=== PATIENT | male | born 1975 | race Caucasian/White ===

== ENCOUNTER 2017-08-05 17:41 | Observation (INO) | payer MEDICAID ==
[~2017-08-05] VITALS: Ht 182.9 cm; Wt 133.3 kg
[~2017-08-05 17:41] MED LIST: DEXAMETHASONE SOD PHOS 4 MG/ML VIAL IV ONE; GLYCOPYRROLATE 0.4 MG/2 ML VIAL IV ONE; HYDR-3535 PO; LIDOCAINE HCL 1% PF 5 ML SYRINGE OTHER ONE; NEOSTIGMINE 3 MG/3 ML SYR IV ONE; NORMOSOL R INJ 1,000 ML IV ONE; ONDANSETRON HCL 4 MG/2 ML VIAL IV PUSH ONE; PROPOFOL 200 MG/20 ML AMP IV ONE; ROCURONIUM INJ 50 MG/5 ML SYRINGE IV PUSH ONE; SUCCINYLCHOLINE CHLORIDE 100 MG/5 ML SYRINGE IV PUSH ONE
[2017-08-05] MEDS ORDERED: IOHEXOL 350 MG/ML 50 ML BTL (for RAD DIAG) IVCONTRAST ONE (17:42)
[2017-08-05 17:45] VITALS: BP 178/114; PULSE 102; RESP 18; TEMP 99.2; O2SAT 94
[2017-08-05] MEDS ORDERED: SODIUM CHLORIDE 0.9% FLUSH 10 ML FLUSH IV FLUSH PRN ×2 (18:45→22:45)
[2017-08-05 18:48] VITALS: O2SAT 96
[2017-08-05 18:49] VITALS: BP 168/98; PULSE 89; RESP 16
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
[2017-08-05 19:17] LABS: AUTOMATED NEUTROPHIL # 7.3 TH/MM3 (1.8-7.7); BASOPHIL % 0.2 % (0.0-2.0); EOSINOPHIL # 0.2 TH/MM3 (0-0.4); EOSINOPHIL % 1.8 % (0.0-4.0); HEMATOCRIT 39.6 % (39.0-51.0); HEMO FLAGS DIFF FINAL; LYMPH % 19.3 % (9.0-44.0); LYMPHOCYTE # 2.1 TH/MM3 (1.0-4.8); MEAN CELL VOLUME 84.5 FL (80.0-100.0); MEAN CORPUSCULAR HEMOGLOBIN 29.6 PG (27.0-34.0); MONO % 10.8 % (0.0-8.0); NEUT % 67.9 % (16.0-70.0); PLATELET COUNT 164 TH/MM3 (150-450); RED BLOOD COUNT 4.69 MIL/MM3 (4.50-5.90); RED CELL DISTRIBUTION WIDTH 13.1 % (11.6-17.2); WHITE BLOOD COUNT 10.8 TH/MM3 (4.0-11.0)
[2017-08-05 19:30] LABS: APTT (PATIENT) 30.1 SEC (24.3-30.1); PROTHROMBIN TIME - PATIENT 10.9 SEC (9.8-11.6)
[2017-08-05 19:34] LABS: ANION GAP 10 MEQ/L (5-15); AST (GOT) 22 U/L (15-37); BLOOD UREA NITROGEN 15 MG/DL (7-18); CHLORIDE 102 MEQ/L (98-107); GLOMERULAR FILTRATION RATE 72 ML/MIN (>89); POTASSIUM 3.7 MEQ/L (3.5-5.1); SODIUM (NA) 138 MEQ/L (136-145)
[2017-08-05 19:36] LABS: ALT (GPT) 28 U/L (12-78)
[2017-08-05 19:37] LABS: ALKALINE PHOSPHATASE 64 U/L (45-117); TOTAL BILIRUBIN ADULT 0.6 MG/DL (0.2-1.0)
[2017-08-05 20:00] VITALS: BP 161/97; PULSE 86; RESP 18; O2SAT 99
--- NOTE | 2017-08-05 21:28 | RADRPT ---
EXAM DATE/TIME: 08/05/2017 20:18 [place] COMPARISON: No previous studies available for comparison. INDICATIONS : Right lower quadrant pain. IV CONTRAST: 95 cc Omnipaque 350 (iohexol) IV ORAL CONTRAST: No oral contrast ingested. RADIATION DOSE: 17.00 CTDIvol (mGy) MEDICAL HISTORY : None SURGICAL HISTORY : None. ENCOUNTER: Initial ACUITY: 1 day PAIN SCALE: 9/10 LOCATION: Right lower quadrant TECHNIQUE: Volumetric scanning of the abdomen and pelvis was performed. Using automated exposure control and ad justment of the mA and/or kV according to patient size, radiation dose was kept as low as reasonably achievable to obtain optimal diagnostic quality images. DICOM format image data is available electro nically for review and comparison. FINDINGS: LOWER LUNGS: There is mild suspected atelectasis at the posterior medial left base. LIVER: There is mild decreased density to the liver without lesion. There is no dilation of the biliary rosmery e. No calcified gallstones. SPLEEN: Normal size without lesion. PANCREAS: Within normal limits. KIDNEYS: Normal in size and shape. There is no mass, stone or hydronephrosis. ADRENAL GLANDS: Within normal limits. VASCULAR: There is no aortic aneurysm. BOWEL/MESENTERY: The appendix is distended. There is inflammatory change surrounding the appendix. There is an 8mm ajay cification within the mid to distal appendix likely related to an appendicolith. No abscess is seen. There is scattered colonic diverticula seen. ABDOMINAL WALL: Within normal limits. RETROPERITONEUM: There is no lymphadenopathy. BLADDER: No wall thickening or mass. REPRODUCTIVE: Within normal limits. INGUINAL: There is no lymphadenopathy or hernia. MUSCULOSKELETAL: Within normal limits for patient age. CONCLUSION: 1. Appendicitis. 2. Scattered colonic diverticula without inflammatory change. 3. Mild hepatic steatosis. 4. Left medial base atelectasis. Avinash Schulz MD on August 05, 2017 at 21:22 Board Certified Radiologist. This report was verified electronically.
--- NOTE | 2017-08-05 21:37 | PD ---
Physical Exam Narrative GENERAL: SKIN: Warm and dry. HEAD: Atraumatic. Normocephalic. EYES: Pupils equal and round. No scleral icterus. No injection or drainage. ENT: No nasal bleeding or discharge. Mucous membranes pink and moist. NECK: Trachea midline. No JVD. CARDIOVASCULAR: Regular rate and rhythm. RESPIRATORY: No accessory muscle use. Clear to auscultation. Breath sounds equal bilaterally. GASTROINTESTINAL: Abdomen soft, nondistended. positive rovsing's and rlq ttp MUSCULOSKELETAL: Extremities without clubbing, cyanosis, or edema. No obvious deformities. NEUROLOGICAL: Awake and alert. No obvious cranial nerve deficits. Motor grossly within normal limits. Five out of 5 muscle strength in the arms and legs. Normal speech. PSYCHIATRIC: Appropriate mood and affect; insight and judgment normal. Data Data Last Documented VS Vital Signs Date Time Temp Pulse Resp B/P (MAP) Pulse Ox O2 Delivery O2 Flow Rate FiO2 08/05/17 20:00 86 18 161/97 (118) 99 Room Air 08/05/17 17:45 99.2 Orders Orders Complete Blood Count With Diff (08/05/17 18:37) Comprehensive Metabolic Panel (08/05/17 18:37) Prothrombin Time / Inr (Pt) (08/05/17 18:37) Act Partial Throm Time (Ptt) (08/05/17 18:37) Ct Abd/Pel W Iv Contrast(Rout) (08/05/17 18:37) Iv Access Insert/Monitor (08/05/17 18:37) Ecg Monitoring (08/05/17 18:37) Oximetry (08/05/17 18:37) NPO (08/05/17 18:37) Sodium Chloride 0.9% Flush (Ns Flush) (08/05/17 18:45) Iohexol 350 Inj (Omnipaque 350 Inj) (08/05/17 17:42) Admit Order (Ed Use Only) (08/05/17 21:38) Ceftriaxone Inj (Rocephin Inj) (08/05/17 21:45) Consult Evans Nfs (08/05/17 ) Labs Laboratory Tests Test 08/05/17 18:42 White Blood Count 10.8 TH/MM3 Red Blood Count 4.69 MIL/MM3 Hemoglobin 13.9 GM/DL Hematocrit 39.6 % Mean Corpuscular Volume 84.5 FL Mean Corpuscular Hemoglobin 29.6 PG Mean Corpuscular Hemoglobin Concent 35.0 % Red Cell Distribution Width 13.1 % Platelet Count 164 TH/MM3 Mean Platelet Volume 8.9 FL Neutrophils (%) (Auto) 67.9 % Lymphocytes (%) (Auto) 19.3 % Monocytes (%) (Auto) 10.8 % Eosinophils (%) (Auto) 1.8 % Basophils (%) (Auto) 0.2 % Neutrophils # (Auto) 7.3 TH/MM3 Lymphocytes # (Auto) 2.1 TH/MM3 Monocytes # (Auto) 1.2 TH/MM3 Eosinophils # (Auto) 0.2 TH/MM3 Basophils # (Auto) 0.0 TH/MM3 CBC Comment DIFF FINAL Differential Comment Prothrombin Time 10.9 SEC Prothromb Time International Ratio 1.0 RATIO Activated Partial Thromboplast Time 30.1 SEC Blood Urea Nitrogen 15 MG/DL Creatinine 1.12 MG/DL Random Glucose 88 MG/DL Total Protein 7.8 GM/DL Albumin 3.9 GM/DL Calcium Level 9.0 MG/DL Alkaline Phosphatase 64 U/L Aspartate Amino Transf (AST/SGOT) 22 U/L Alanine Aminotransferase (ALT/SGPT) 28 U/L Total Bilirubin 0.6 MG/DL Sodium Level 138 MEQ/L Potassium Level 3.7 MEQ/L Chloride Level 102 MEQ/L Carbon Dioxide Level 26.0 MEQ/L Anion Gap 10 MEQ/L Estimat Glomerular Filtration Rate 72 ML/MIN [facility] Medical Record Reviewed: Yes Supervised Visit with KYLEE: Yes Interpretation(s) NSR 91, INVERTED T WAVE ON I AND AVL, NO STEMI PATTERN NOTED Differential Diagnosis APPY V BILIARY COLIC V ENTERITIS Narrative Course PATIENT WAS EVALUATED AND ON CT FOUND TO HAVE APPY, WITHOUT LEUKOCYTOSIS Physician Communication Physician Communication D/W DR MORENO Diagnosis Primary Impression: ACUTE APPENDICITIS Admitting Information Admitting Physician Requests: Admit Referrals: Primary Care Physician Scripts No Active Prescriptions or Reported Meds Disposition: 01 DISCHARGE HOME Condition: Stable Main Mcgraw MD Aug 05, 2017 21:37
[2017-08-05] MEDS ORDERED: cefTRIAXone INJ 1,000 MG in SODIUM CHLORIDE 0.9% INJ 100 ML IV ONE (21:45)
[2017-08-05] MEDS ORDERED: BUPIVACAINE/EPINEPHRINE 0.5% 50 ML VIAL ONE (22:31)
[2017-08-05 22:34] VITALS: BP 154/102
[2017-08-05] MEDS ORDERED: ACETAMINOPHEN 1000 MG/100 ML 100 ML IV ONE (22:40)
[2017-08-05] MEDS ORDERED: ACETAMINOPHEN/HYDROcodone 325 MG/5 MG TAB PO PRN ×2 (22:45)
[2017-08-05] MEDS ORDERED: KETOROLAC TROMETHAMINE 30 MG/ML (IVP) VIAL IVP PRN (22:45)
[2017-08-05] MEDS ORDERED: ONDANSETRON HCL 4 MG/2 ML VIAL IV PUSH PRN (22:45)
[2017-08-05] MEDS ORDERED: Post-op Orders (for Pharmacy) MISC XX ONE (22:45)
[2017-08-05] MEDS ORDERED: HYDROmorphone HCL PF 1 MG/ML VIAL IV PUSH PRN (22:45)
[2017-08-05] MEDS: SODIUM CHLORIDE 0.9% FLUSH 10 ML FLUSH IV FLUSH SCH (22:45)
--- NOTE | 2017-08-05 22:45 | HHI.PR ---
Immediate Post Op Note Procedure Date: Aug 05, 2017 Pre Op Diagnosis: acute appendicitis Post Op Diagnosis: same Surgeon: Ancelmo Rodríguez MD Line Assembl[employer] Aircraft(s): see or sheet Procedure: lap appy Findings: distended appendix Complications: none Specimen(s) removed: appendix Estimated blood loss: 5cc Anesthesia: General Drains: None Patient to: PACU Patient Condition: Good Ancelmo Rodríguez MD Aug 05, 2017 22:45
[2017-08-05] MEDS ORDERED: PIPERACIL-TAZO 3.375 GM PREMIX 50 ML IV SCH (23:00)
[2017-08-06] MEDS ORDERED: *morphine SULFATE 8 MG/ML PERIprocedure ONLY ONE (00:13)
[2017-08-06] MEDS ORDERED: DO NOT ADM ANY ANTICOAGULANT DRUGS PRN (00:15)
[2017-08-06 00:30] VITALS: O2SAT 97
[2017-08-06] MEDS: DOCUSATE SODIUM 100 MG CAP PO SCH ×2 (00:52→09:32)
[2017-08-06 01:15] VITALS: BP 128/77; PULSE 68; RESP 18; TEMP 98; O2SAT 96
[2017-08-06 04:00] VITALS: BP 128/73; PULSE 80; RESP 18; TEMP 98.1; O2SAT 95
--- NOTE | 2017-08-06 05:33 | MH ---
cc: KARL MORENO MD DATE OF ADMISSION: 08/05/2017 CHIEF COMPLAINT Right lower quadrant abdominal pain, appendicitis. HISTORY OF PRESENT ILLNESS The patient is a 42-year-old male who presents with initial periumbilical pain that started last night. The pain continued to get worse and was very significant early today, 06/30, sharp. It was located in the periumbilical and right lower quadrant, worse with movement, better with lying still, associated nausea, no vomiting. The patient came to the emergency department. Further workup including CT scan showing acute appendicitis. Also the patient with very mild leukocytosis of 10.6. Surgical consultation called. The patient further denies any weight loss, any history of pain like this before and is relatively healthy other than hypertension. PAST MEDICAL HISTORY 1. Arthritis. 2. Hypertension. PAST SURGICAL HISTORY 1. Knee surgery. 2. Arm surgery. SOCIAL HISTORY Denies smoking, EtOH or IVDA. ALLERGIES DICLOFENAC. MEDICATIONS See EMR. FAMILY HISTORY Denies diabetes or hypertension. REVIEW OF SYSTEMS GENERAL: Denies fevers or chills. HEENT: Denies eye pain, ear pain. NECK: Denies swelling or pain. LUNGS: Denies cough or wheeze. HEART: Denies palpitation or chest pain. ABDOMEN: Complained of nausea, vomiting and abdominal pain. : Denies dysuria, hematuria. ENDOCRINE: Denies polyuria or polydipsia. EXTREMITIES: Denies arthralgia, myalgias. INTEGUMENT: Denies masses or lesions. PSYCH: Denies change in mood or sensorium. PHYSICAL EXAMINATION GENERAL: The patient in no acute distress. HEENT: PERRLA. Pupils equal, round reactive. NECK: Supple. Trachea midline. LUNGS: Clear to auscultation bilaterally. HEART: S1-S2. ABDOMEN: Soft. Positive tenderness to palpation in the right lower quadrant. Minimal rebound in the right lower quadrant. EXTREMITIES: Warm, well-perfused. NEUROLOGIC: GCS 15, 5/5 motor all extremities. PSYCH: Appropriate insight and judgment. VITAL SIGNS: Temperature 99.2, pulse 89, respirations 16, blood pressure 168/98, saturation 96%. LABORATORY/DIAGNOSTIC DATA WBC 10.8, hemoglobin 13.9, hematocrit 39.6, platelets 164. Sodium 138, potassium 3.7, chloride 102, BUN 15, creatinine 1.1, AST 22, ALT 28, albumin 3.9. INR is 1. IMAGING STUDIES CT scan reviewed by myself showing acute appendicitis. No evidence of free fluid. No evidence of free air. ASSESSMENT The patient is a 42-year-old male with acute onset of right lower quadrant pain consistent with appendicitis. PLAN A full clinical, radiologic and laboratory workup revealing the patient has the above-named issues including acute appendicitis. At this point discussed with the patient regarding laparoscopic appendectomy. We will make the patient n.p.o., IV fluids, antibiotics, pain control. We will proceed with operative intervention including laparoscopic appendectomy, possible open. The patient understands and is aware. at bedside and discussed this. MD ANIKET Sorenson/JACKI /10:52 PM /5:30 AM
[2017-08-06 06:55] LABS: AUTOMATED NEUTROPHIL # 9.1 TH/MM3 (1.8-7.7); BASOPHIL % 0.1 % (0.0-2.0); EOSINOPHIL % 0.1 % (0.0-4.0); HEMO FLAGS DIFF FINAL; LYMPH % 8.5 % (9.0-44.0); LYMPHOCYTE # 0.9 TH/MM3 (1.0-4.8); MEAN CELL VOLUME 84.9 FL (80.0-100.0); MEAN CORPUSCULAR HEMOGLOBIN 29.8 PG (27.0-34.0); MEAN CORPUSCULAR HGB CONC 35.1 % (32.0-36.0); MONO % 3.7 % (0.0-8.0); NEUT % 87.6 % (16.0-70.0); PLATELET COUNT 158 TH/MM3 (150-450); RED BLOOD COUNT 4.59 MIL/MM3 (4.50-5.90); RED CELL DISTRIBUTION WIDTH 12.9 % (11.6-17.2); WHITE BLOOD COUNT 10.4 TH/MM3 (4.0-11.0)
[2017-08-06 07:32] LABS: BICARBONATE 24.8 MEQ/L (21.0-32.0); POTASSIUM 4.1 MEQ/L (3.5-5.1)
[2017-08-06 08:00] VITALS: BP 135/83; PULSE 87; RESP 18; TEMP 97.1; O2SAT 92
[2017-08-06] MEDS ORDERED: PIPERACIL-TAZO 3.375 GM PREMIX 50 ML IV SCH (08:00)
[2017-08-06] MEDS: SODIUM CHLOR 0.9% 1000 ML INJ 1,000 ML IV SCH ×2 (08:38)
[2017-08-06] MEDS: SODIUM CHLORIDE 0.9% FLUSH 10 ML FLUSH IV FLUSH SCH (09:00)
[2017-08-06 09:17] VITALS: O2SAT 93
[2017-08-06 12:00] VITALS: BP 144/83; PULSE 82; RESP 18; TEMP 95.4; O2SAT 94
--- NOTE | 2017-08-06 12:22 | HHI.DS ---
Discharge Summary Admission Date Aug 05, 2017 at 22:41 Discharge Date: Aug 06, 2017 Admitting Diagnosis ACUTE APPENDICITIS Brief History 42-year-old male with acute appendicitis. CBC/BMP: 08/06/17 0600 08/06/17 0600 Significant Findings Laboratory Tests Test 08/05/17 18:42 08/06/17 06:00 Monocytes (%) (Auto) 10.8 % (0.0-8.0) Monocytes # (Auto) 1.2 TH/MM3 (0-0.9) Estimat Glomerular Filtration Rate 72 ML/MIN (>89) 86 ML/MIN (>89) Neutrophils (%) (Auto) 87.6 % (16.0-70.0) Lymphocytes (%) (Auto) 8.5 % (9.0-44.0) Neutrophils # (Auto) 9.1 TH/MM3 (1.8-7.7) Lymphocytes # (Auto) 0.9 TH/MM3 (1.0-4.8) Random Glucose 139 MG/DL (74-106) Calcium Level 8.4 MG/DL (8.5-10.1) PE at Discharge Ambulating in room in no acute distress Cardio: RRR Resp: CTAB Abd: lap sites c/d/i; minimally tender Hospital Course This is a 42-year-old male postoperative day 1 after laparoscopic appendectomy for acute appendicitis. The patient's diet was advanced to a regular diet as tolerated. The patient's pain was controlled using oral pain medications. The patient does not require a prescription for antibiotics. The patient will be discharged home with instructions to follow-up in the office as indicated on the discharge information. Pt Condition on Discharge: Good Discharge Disposition: Discharge Home Discharge Instructions DIET: Follow Instructions for: As Tolerated, No Restrictions Melissa Chavez Aug 06, 2017 12:22
--- NOTE | 2017-08-06 13:21 | MP ---
cc: KARL RODRÍGUEZ MD DATE OF SURGERY 08/05/2017 PREOPERATIVE DIAGNOSIS Acute appendicitis. POSTOPERATIVE DIAGNOSIS Acute appendicitis. PROCEDURE PERFORMED Laparoscopic appendectomy. SURGEON Dr. Karl Rodríguez MANAGER TRANSPORT See OR sheet. ANESTHESIA GETA. IV FLUIDS See anesthesia sheet. ESTIMATED BLOOD LOSS 5 cc. DRAINS None. COMPLICATIONS None. WOUND CLASSIFICATION Contaminated. SPECIMEN Appendix. FINDINGS Indurated purulent appendix with acute appendicitis, no overt perforation. INDICATION The patient is a 42-year-old male who presented with acute onset of right lower quadrant abdominal pain. He had further workup including CT scan showing acute appendicitis. Therefore a decision was made for operative intervention including laparoscopic appendectomy. DETAILS OF PROCEDURE The patient was taken to the operating suite, placed in supine position. He was prepped and draped in the usual sterile fashion after induction of general endotracheal anesthesia. A brief time-out was done stating correct patient, procedure, surgical site. We were all in agreement with this. Attention was first directed to the umbilicus where a small stab/yuliya incision was made with an 11-blade. Local anesthetic was injected. The Veress needle was used and intraabdominal placement confirmed with saline drop test. The abdomen was insufflated to 15 mmHg pneumoperitoneum. Veress needle was exchanged for a 5-mm trocar. On cursory inspection there was no evidence of injury. Two other trocars were placed, one 5 mm suprapubic and a 12 mm left lower quadrant. The patient was placed in Trendelenburg and airplaned to the left. The right lower quadrant, actually more mid in the abdomen was noted to have a thickened, indurated appendix. There were some adhesions mobilized around the appendix. Once the base of the appendix was identified, a MOHSEN 35 was used to transect the base of the mesoappendix after a window was made in the base of the appendix. Next, the mesoappendix was mobilized and two MOHSEN-30 staple loads were used to transect the mesoappendix. Next, the appendix was placed in the appendiceal bag and removed from the left lower quadrant abdomen port. Next, a suture passer device was used to close the fascia of the left lower quadrant port. Next, 4-0 Monocryl was done after desufflation of the abdomen through all port sites first with subcuticular suture with 4-0 Monocryl. Sterile dressings were then placed. The patient tolerated the procedure well; there was no intraoperative complications. All lap and instrument counts were correct at the end of the procedure. The patient was taken stable to the PACU. MD ANIKET Sorenson/JACKI /10:56 AM /1:10 PM
--- NOTE | 2017-08-06 18:04 | EKG ---
Date Performed: 08/05/2017 Time Performed: 22:06:33 PTAGE: 42 years EKG: Sinus rhythm POSSIBLE LEFT ATRIAL ENLARGEMENT BORDERLINE LEFT AXIS DEVIATION ST DEVIATION AND MODERATE T-WAVE ABN ORMALITY, CONSIDER LATERAL ISCHEMIA ABNORMAL ECG PREVIOUS TRACING : 04/28/2004 09.03 Since the prior tracing, there has been an increase in the T-wave changes involving the high lateral wall. The lateral T-wave changes have improved. Serial asencio ges are nonspecific, but clinical correlation is necessary. DOCTOR: Deyanira Zurita Interpretating Date/Time 08/06/2017 18:04:30
== END 2017-08-06 17:08 | disposition home or self-care (01) ==
LOC: NEPD 17:41 → UNDOADMIN 21:41 → NEDA 21:41 → INTOOBSV 22:41 → HPAC 22:41 → NEDA 22:41 → N07B 22:50
PROVIDERS: ADMIT Surgery; ATTEND Surgery
DX: K35.80 Unspecified acute appendicitis (principal); I10 Essential (primary) hypertension; K57.30 Diverticulosis of large intestine without perforation or abscess without bleeding; K76.0 Fatty (change of) liver, not elsewhere classified; R94.31 Abnormal electrocardiogram [ECG] [EKG]; M54.9 Dorsalgia, unspecified; G89.29 Other chronic pain; M19.90 Unspecified osteoarthritis, unspecified site
CPT/HCPCS: 00840; 44970; 74177; 80048; 80053; 85025; 85610; 85730; 86900; 86901; 88304; 93005; 94150; 96361; 96365; 96376; 99285; G0378; J0131; J0330; J0696; J1100; J2270; J2405; J2543; J2710; J3010; J7030; Q9967

== ENCOUNTER 2017-09-04 06:42 | Inpatient (IN) | payer MEDICAID ==
[~2017-09-04] VITALS: Ht 182.9 cm; Wt 130.0 kg
[2017-09-04] VITALS (8 sets, daily range): BP systolic 123–209; BP diastolic 68–109; PULSE 80–100; RESP 18–20; TEMP 98.3–100.4; O2SAT 95–98
[2017-09-04] MEDS ORDERED: LOSA50TA PO (06:49)
[2017-09-04] MEDS ORDERED: SODIUM CHLOR 0.9% 1000 ML INJ 1,000 ML IV SCH ×2 (07:07→10:45)
[2017-09-04] MEDS ORDERED: ONDANSETRON HCL 4 MG/2 ML VIAL IVP ONE (07:15)
[2017-09-04] MEDS ORDERED: SODIUM CHLORIDE 0.9% FLUSH 10 ML FLUSH IV FLUSH PRN (07:15)
[2017-09-04] MEDS ORDERED: ACETAMINOPHEN 325 MG TAB PO ONE (07:15)
[2017-09-04] MEDS ORDERED: MORPHINE SULFATE 4 MG/ML INJ IV PUSH ONE (07:15)
[2017-09-04] MEDS ORDERED: MORPHINE SULFATE 2 MG/ML INJ IV PUSH ONE ×2 (07:30)
[2017-09-04 07:32] LABS: AUTOMATED NEUTROPHIL # 8.2 TH/MM3 (1.8-7.7); BASOPHIL # 0.1 TH/MM3 (0-0.2); BASOPHIL % 0.5 % (0.0-2.0); EOSINOPHIL # 0.1 TH/MM3 (0-0.4); EOSINOPHIL % 0.6 % (0.0-4.0); HEMATOCRIT 39.4 % (39.0-51.0); HEMO FLAGS DIFF FINAL; LYMPH % 15.8 % (9.0-44.0); LYMPHOCYTE # 1.8 TH/MM3 (1.0-4.8); MEAN CELL VOLUME 82.9 FL (80.0-100.0); MEAN CORPUSCULAR HEMOGLOBIN 28.8 PG (27.0-34.0); MEAN CORPUSCULAR HGB CONC 34.7 % (32.0-36.0); MONO % 12.1 % (0.0-8.0); PLATELET COUNT 149 TH/MM3 (150-450); RED BLOOD COUNT 4.75 MIL/MM3 (4.50-5.90); RED CELL DISTRIBUTION WIDTH 13.3 % (11.6-17.2); WHITE BLOOD COUNT 11.5 TH/MM3 (4.0-11.0)
[2017-09-04 07:38] LABS: APTT (PATIENT) 29.8 SEC (24.3-30.1); INTERNATIONAL NORMALIZED RATIO 1.1 RATIO; PROTHROMBIN TIME - PATIENT 10.9 SEC (9.8-11.6)
[2017-09-04 07:46] LABS: ANION GAP 7 MEQ/L (5-15); BICARBONATE 26.3 MEQ/L (21.0-32.0); BLOOD UREA NITROGEN 13 MG/DL (7-18); CHLORIDE 104 MEQ/L (98-107); GLOMERULAR FILTRATION RATE 78 ML/MIN (>89); POTASSIUM 4.2 MEQ/L (3.5-5.1); SODIUM (NA) 137 MEQ/L (136-145)
[2017-09-04 07:47] LABS: ALT (GPT) 20 U/L (12-78); AST (GOT) 12 U/L (15-37)
[2017-09-04 07:50] LABS: ALKALINE PHOSPHATASE 62 U/L (45-117); TOTAL BILIRUBIN ADULT 0.8 MG/DL (0.2-1.0)
[2017-09-04 08:17] LABS: BLOOD, URINE SMALL (NEG); COMMENT (UR) CULT NOT INDICATED; CULTURE IF INDICATED CULT NOT INDICATED; GLUCOSE,URINE NEG (NEG); KETONE, URINE NEG (NEG); MUCUS URINE FEW /lpf (OCC); NITRITE,URINE NEG (NEG); PH, URINE 5.5 (5.0-8.5); SQUAMOUS EPITHELIAL CELL URINE <1 /hpf (0-5); URINE COLOR YELLOW (YELLW/STRAW)
--- NOTE | 2017-09-04 08:20 | PD ---
HPI Chief Complaint: Abdominal Pain Time Seen by Provider: 07:04 Travel History International Travel<30 days: No Contact w/Intl Traveler<30days: No Traveled to known affect area: No History of Present Illness HPI Patient is a 42 year old male who comes in complaining of left sided abdominal pain. He says he has had the pain for the past few days with nausea and vomiting. He says he has had constipation, with his last bowel movement being last night, but it was small and hard. He says he has had nausea and vomiting, last episode of vomiting at 5:30 this morning. He also reports fevers as high as 102. He says he has been taking Tylenol and Ibuprofen without much relief. He denies any urinary symptoms. 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) Blood Disorders: No Heart Rhythm Problems: No Cancer: No Cardiovascular Problems: Yes High Cholesterol: No Chest Pain: Yes (CHEMICAL STRESSTEST: NEGATIVE) Congestive Heart Failure: No Cerebrovascular Accident: No Diminished Hearing: No Endocrine: No Gastrointestinal Disorders: No Genitourinary: No Headaches: Yes Herniated Disk: Yes (L5-S1) Hypertension: No Immune Disorder: Yes Implanted Vascular Access Dvce: No Musculoskeletal: Yes (chronic back pain) Neurologic: No Psychiatric: No Reproductive: No Respiratory: No Immunizations Current: Yes Myocardial Infarction: No Seizures: No Past Surgical History Abdominal Surgery: No AICD: No Appendectomy: Yes Cardiac Surgery: No Ear Surgery: No Endocrine Surgery: No Eye Surgery: No Genitourinary Surgery: No Gynecologic Surgery: No Neurologic Surgery: No Oral Surgery: No Pacemaker: No Thoracic Surgery: No Other Surgery: Yes (I+D RIGHT HAND FOR MRSA) Social History Alcohol Use: Yes ("couple times a month") Tobacco Use: No (QUIT: JUNE 2013) Substance Use: No Allergies-Medications (Allergen,Severity, Reaction): Coded Allergies: diclofenac (Unverified Allergy, Severe, N/V, 09/04/17) Reported Meds & Prescriptions Reported Meds & Active Scripts Active Reported Losartan (Losartan Potassium) 50 Mg Tab 50 Mg PO DAILY Review of Systems Except as stated in HPI: all other systems reviewed are Neg General / Constitutional: Positive: Fever HENT: No: Headaches, Lightheadedness Cardiovascular: No: Chest Pain or Discomfort Respiratory: No: Cough, Shortness of Breath Gastrointestinal: Positive: Nausea, Vomiting, Abdominal Pain, Constipation Genitourinary: No: Dysuria Musculoskeletal: No: Edema, Pain Skin: No Rash, No Lumps, No Hives Neurologic: No: Weakness, Dizziness Physical Exam Narrative GENERAL: Awake and alert, in no acute distress. SKIN: Focused skin assessment warm/dry. Area of erythema to the left lower abdominal wall, warm to the touch. HEAD: Atraumatic. Normocephalic. EYES: Pupils equal and round. No scleral icterus. ENT: Mucous membranes pink and moist. NECK: Trachea midline. No JVD. CARDIOVASCULAR: Regular rate and rhythm. No murmur appreciated. RESPIRATORY: No accessory muscle use. Clear to auscultation. Breath sounds equal bilaterally. GASTROINTESTINAL: Abdomen soft, nondistended. Tender to palpation to the left side of the abdomen, no rebound or guarding. MUSCULOSKELETAL: No obvious deformities. No clubbing. No cyanosis. No edema. NEUROLOGICAL: Awake and alert. No obvious cranial nerve deficits. Motor grossly within normal limits. Normal speech. PSYCHIATRIC: Appropriate mood and affect; insight and judgment normal. Data Data Last Documented VS Vital Signs Date Time Temp Pulse Resp B/P (MAP) Pulse Ox O2 Delivery O2 Flow Rate FiO2 09/04/17 07:45 94 18 165/89 (114) 97 Room Air 09/04/17 06:43 100.4 Orders Orders Complete Blood Count With Diff (09/04/17 07:07) Comprehensive Metabolic Panel (09/04/17 07:07) Lactic Acid (09/04/17 07:07) Prothrombin Time / Inr (Pt) (09/04/17 07:07) Act Partial Throm Time (Ptt) (09/04/17 07:07) Urinalysis - C+S If Indicated (09/04/17 07:07) Ct Abd/Pel W Iv Contrast(Rout) (09/04/17 07:07) Iv Access Insert/Monitor (09/04/17 07:07) Ecg Monitoring (09/04/17 07:07) Oximetry (09/04/17 07:07) Morphine Inj (Morphine Inj) (09/04/17 07:15) Ondansetron Inj (Zofran Inj) (09/04/17 07:15) Sodium Chlor 0.9% 1000 Ml Inj (Ns 1000 M (09/04/17 07:07) Sodium Chloride 0.9% Flush (Ns Flush) (09/04/17 07:15) Acetaminophen (Tylenol) (09/04/17 07:15) Morphine Inj (Morphine Inj) (09/04/17 07:30) Morphine Inj (Morphine Inj) (09/04/17 07:30) Iohexol 350 Inj (Omnipaque 350 Inj) (09/04/17 08:27) Ceftriaxone Inj (Rocephin Inj) (09/04/17 09:15) Vancomycin Inj (Vancomycin Inj) (09/04/17 09:15) Blood Culture (09/04/17 09:10) Admit Order (Ed Use Only) (09/04/17 ) Labs Laboratory Tests Test 09/04/17 07:19 09/04/17 07:53 White Blood Count 11.5 TH/MM3 Red Blood Count 4.75 MIL/MM3 Hemoglobin 13.7 GM/DL Hematocrit 39.4 % Mean Corpuscular Volume 82.9 FL Mean Corpuscular Hemoglobin 28.8 PG Mean Corpuscular Hemoglobin Concent 34.7 % Red Cell Distribution Width 13.3 % Platelet Count 149 TH/MM3 Mean Platelet Volume 8.6 FL Neutrophils (%) (Auto) 71.0 % Lymphocytes (%) (Auto) 15.8 % Monocytes (%) (Auto) 12.1 % Eosinophils (%) (Auto) 0.6 % Basophils (%) (Auto) 0.5 % Neutrophils # (Auto) 8.2 TH/MM3 Lymphocytes # (Auto) 1.8 TH/MM3 Monocytes # (Auto) 1.4 TH/MM3 Eosinophils # (Auto) 0.1 TH/MM3 Basophils # (Auto) 0.1 TH/MM3 CBC Comment DIFF FINAL Differential Comment Prothrombin Time 10.9 SEC Prothromb Time International Ratio 1.1 RATIO Activated Partial Thromboplast Time 29.8 SEC Blood Urea Nitrogen 13 MG/DL Creatinine 1.04 MG/DL Random Glucose 109 MG/DL Total Protein 7.9 GM/DL Albumin 3.8 GM/DL Calcium Level 9.1 MG/DL Alkaline Phosphatase 62 U/L Aspartate Amino Transf (AST/SGOT) 12 U/L Alanine Aminotransferase (ALT/SGPT) 20 U/L Total Bilirubin 0.8 MG/DL Sodium Level 137 MEQ/L Potassium Level 4.2 MEQ/L Chloride Level 104 MEQ/L Carbon Dioxide Level 26.3 MEQ/L Anion Gap 7 MEQ/L Estimat Glomerular Filtration Rate 78 ML/MIN Lactic Acid Level 0.6 mmol/L Urine Color YELLOW Urine Turbidity CLEAR Urine pH 5.5 Urine Specific [place] 1.024 Urine Protein TRACE mg/dL Urine Glucose (UA) NEG mg/dL Urine Ketones NEG mg/dL Urine Occult Blood SMALL Urine Nitrite NEG Urine Bilirubin NEG Urine Urobilinogen LESS THAN 2.0 MG/DL Urine Leukocyte Esterase NEG Urine RBC 1 /hpf Urine WBC 2 /hpf Urine Squamous Epithelial Cells <1 /hpf Urine Mucus FEW /lpf Microscopic Urinalysis Comment CULT NOT INDICATED MDM Medical Decision Making Medical Screen Exam Complete: Yes Emergency Medical Condition: Yes Medical Record Reviewed: Yes Differential Diagnosis Diverticulitis versus colitis versus cellulitis Narrative Course Patient is a 42 year old male complaining of left sided abdominal pain. Exam shows erythema and warmth to the skin over the left side of the abdomen as well as tenderness to palpation. IV established, labs sent. Labs show an elevation in WBC count to 11.5. Patient is febrile and tachycardic. Given IVF, Tylenol, morphine, Zofran. Given Rocephin and Vancomycin. CT shows abdominal wall cellulitis and inflammation of the rectus muscle. Last 24 hours Impressions Abdomen/Pelvis CT 09/04/17 0707 Signed Impressions: Service Date/Time: Monday, September 04, 2017 08:20 - CONCLUSION: 1. There is nonspecific edema in the subcutaneous soft tissues of the left lower anterior abdominal wall with diffuse enlargement of the left rectus muscle. This may be hematoma versus inflammatory process.. No loculated fluid collections are demonstrated in the abdominal wall. 2. Scattered diverticulosis of the descending and sigmoid colon without inflammatory changes. 3. Fatty infiltration of the liver. 4. Stable scarring medial left lower lung. Uli May MD Patient admitted for further management. Diagnosis Primary Impression: Abdominal wall cellulitis Admitting Information Admitting Physician Requests: Admit Alicia Roper MD Sep 04, 2017 08:20
[2017-09-04] MEDS ORDERED: IOHEXOL 350 MG/ML 10 ML VIAL (for RAD DIAG) IVCONTRAST ONE (08:27)
--- NOTE | 2017-09-04 08:51 | RADRPT ---
EXAM DATE/TIME: 09/04/2017 08:20 [place] COMPARISON: CT ABDOMEN & PELVIS W CONTRAST, August 05, 2017, 20:18. INDICATIONS : Left lower quadrant pain and vomiting for two days. IV CONTRAST: 70 cc Omnipaque 350 (iohexol) IV ORAL CONTRAST: No oral contrast ingested. RADIATION DOSE: 16.94 CTDIvol (mGy) MEDICAL HISTORY : None SURGICAL HISTORY : Appendectomy. ENCOUNTER: Initial ACUITY: 2 days PAIN SCALE: 4/10 LOCATION: Left lower quadrant TECHNIQUE: Volumetric scanning of the abdomen and pelvis was performed. Using automated exposure control and ad justment of the mA and/or kV according to patient size, radiation dose was kept as low as reasonably achievable to obtain optimal diagnostic quality images. DICOM format image data is available electro nically for review and comparison. FINDINGS: LOWER LUNGS: Stable scarring in the medial left lower lung. Right lung bases clear. LIVER: Homogeneous density without lesion. There is some fatty infiltration throughout the liver. There is no dilation of the biliary tree. No calcified gallstones. SPLEEN: Normal size without lesion. PANCREAS: Within normal limits. KIDNEYS: Normal in size and shape. There is no mass, stone or hydronephrosis. ADRENAL GLANDS: Within normal limits. VASCULAR: There is no aortic aneurysm. BOWEL/MESENTERY: The stomach, small bowel, and colon demonstrate no acute abnormality. There is no free intraperitone al air or fluid. There is some scattered diverticulosis of the descending and sigmoid colon without i nflammatory changes. There is an appendicolith in the distal appendix. Otherwise, the appendix is unr emarkable. No focal inflammatory changes are seen. ABDOMINAL WALL: There is nonspecific edema in the subcutaneous tissues involving the left lower anterior abdominal wa ll. There is also diffuse prominence of the left rectus muscle compared to the right. No loculated fl uid collections are demonstrated. RETROPERITONEUM: There is no lymphadenopathy. BLADDER: No wall thickening or mass. REPRODUCTIVE: Within normal limits. INGUINAL: There is no lymphadenopathy or hernia. MUSCULOSKELETAL: Within normal limits for patient age. CONCLUSION: 1. There is nonspecific edema in the subcutaneous soft tissues of the left lower anterior abdominal w all with diffuse enlargement of the left rectus muscle. This may be hematoma versus inflammatory proc ess.. No loculated fluid collections are demonstrated in the abdominal wall. 2. Scattered diverticulosis of the descending and sigmoid colon without inflammatory changes. 3. Fatty infiltration of the liver. 4. Stable scarring medial left lower lung. Uli May MD on September 04, 2017 at 8:42 Board Certified Radiologist. This report was verified electronically.
[2017-09-04] MEDS ORDERED: VANCOMYCIN INJ 1,950 MG in SODIUM CHLORID 0.9% 500 ML INJ 500 ML IV ONE (09:15)
[2017-09-04] MEDS ORDERED: cefTRIAXone INJ 1,000 MG in SODIUM CHLORIDE 0.9% INJ 100 ML IV ONE (09:15)
[2017-09-04] MEDS ORDERED: oxyCODONE/ACETAMINOPHEN 5 MG/325 MG TAB PO PRN (10:30)
[2017-09-04] MEDS ORDERED: Vancomycin Consult Pharmacy 1 EA OTHER SCH (10:30)
[2017-09-04] MEDS: LOSARTAN 50 MG TAB PO SCH (10:30)
--- NOTE | 2017-09-04 10:43 | HHI.HP ---
HPI Service [facility] Hospitalists Primary Care Physician Lukasz Tate MD Admission Diagnosis cellulitis Chief Complaint: Abd pain Travel History International Travel<30 Days: No Contact w/Intl Traveler <30 Da: No Traveled to Known Affected Are: No History of Present Illness Mr. Irizarry is a pleasant 42 y/o WM with HTN, hx of MRSA infection involving his right first digit, and who recent had appendectomy on 08/05/[address] Ancelmo Rodríguez for acute appendicitis. Pt reports that he recovered well from this surgery and returned to work on light duty. Three days ago he was able to return to full active duty at work and states that he was feeling well. The day he started back to full active duty he was lifting some heavy tables. Then two days ago during the day he started noticing some left lower quadrant abdominal pain and some nausea. Yesterday he developed fevers upwards of 101 degrees. He says he has been taking Tylenol and Ibuprofen without much relief. He says he has had some constipation, with his last bowel movement being last night, but it was small and hard. He denies any urinary symptoms, diarrhea, vomiting, melena, BRBPR. The pts pain and nausea worsened last night and this prompted his evaluation in the ED. His labs in the ED noted elevated WBC count of 11.2 and he was noted to be febrile upon arrival. CT Abdomen/pelvis in the ED revealed nonspecific edema in the subcutaneous soft tissues of the left lower anterior abdominal wall with diffuse enlargement of the left rectus muscle. This may be hematoma versus inflammatory process. No loculated fluid collections are demonstrated in the abdominal wall. It also noted scattered diverticulosis of the descending and sigmoid colon without inflammatory changes , fatty infiltration of the liver, and stable scarring medial left lower lung. Pt is being admitted for cellulitis and was prescribed IV Vancomycin and Rocephin in the ED. Review of Systems Constitutional: COMPLAINS OF: Fever Eyes: DENIES: Vision loss Ears, nose, mouth, throat: DENIES: Hearing loss Respiratory: DENIES: Cough, Sputum production, Shortness of breath Cardiovascular: DENIES: Chest pain, Palpitations, Dyspnea on Exertion, Lower Extremity Edema Gastrointestinal: COMPLAINS OF: Abdominal pain, Constipation, Nausea Genitourinary: DENIES: Urgency, Hematuria, Dysuria Musculoskeletal: DENIES: Back pain, Neck pain Integumentary: DENIES: Rash Neurologic: DENIES: Headache Psychiatric: DENIES: Confusion Past Family Social History Past Medical History HTN Hx of MRSA infection in the right hand first digit in 2007 Obesity Hyperlipidemia Past Surgical History Right knee arthroscopy Right hand first digit surgery Reported Medications -Losartan 50 Mg PO DAILY Allergies: Coded Allergies: diclofenac (Unverified Allergy, Severe, N/V, 09/04/17) Family History Noncontributory Social History Denies any alcohol, tobacco or illicit drug use Physical Exam Vital Signs Vital Signs Date Time Temp Pulse Resp B/P (MAP) Pulse Ox O2 Delivery O2 Flow Rate FiO2 09/04/17 07:45 94 18 165/89 (114) 97 Room Air 09/04/17 07:41 18 97 Room Air 09/04/17 06:43 100.4 100 18 209/109 (142) 96 Room Air Physical Exam GENERAL: This is a well-nourished, well-developed patient, in no apparent distress. SKIN: Left lower abdominal panus with some erythema and warmth, tenderness to the touch HEENT: Atraumatic. Normocephalic. No temporal or scalp tenderness. No scleral icterus. Airway patent. NECK: Trachea midline, supple, nontender. CARDIO: Regular. RESP: CTA bilaterally. No wheezes, rales, or rhonchi. ABD: +BS, soft, obese, nondistended. Erythema and warmth of the skin in the left lower abdomen EXT: Extremities without clubbing, cyanosis, or edema. NEURO: Awake and alert. Motor and sensory grossly within normal limits. Normal speech. Laboratory Laboratory Tests Test 09/04/17 07:19 09/04/17 07:53 White Blood Count 11.5 Red Blood Count 4.75 Hemoglobin 13.7 Hematocrit 39.4 Mean Corpuscular Volume 82.9 Mean Corpuscular Hemoglobin 28.8 Mean Corpuscular Hemoglobin Concent 34.7 Red Cell Distribution Width 13.3 Platelet Count 149 Mean Platelet Volume 8.6 Neutrophils (%) (Auto) 71.0 Lymphocytes (%) (Auto) 15.8 Monocytes (%) (Auto) 12.1 Eosinophils (%) (Auto) 0.6 Basophils (%) (Auto) 0.5 Neutrophils # (Auto) 8.2 Lymphocytes # (Auto) 1.8 Monocytes # (Auto) 1.4 Eosinophils # (Auto) 0.1 Basophils # (Auto) 0.1 CBC Comment DIFF FINAL Differential Comment Prothrombin Time 10.9 Prothromb Time International Ratio 1.1 Activated Partial Thromboplast Time 29.8 Blood Urea Nitrogen 13 Creatinine 1.04 Random Glucose 109 Total Protein 7.9 Albumin 3.8 Calcium Level 9.1 Alkaline Phosphatase 62 Aspartate Amino Transf (AST/SGOT) 12 Alanine Aminotransferase (ALT/SGPT) 20 Total Bilirubin 0.8 Sodium Level 137 Potassium Level 4.2 Chloride Level 104 Carbon Dioxide Level 26.3 Anion Gap 7 Estimat Glomerular Filtration Rate 78 Lactic Acid Level 0.6 Urine Color YELLOW Urine Turbidity CLEAR Urine pH 5.5 Urine Specific [place] 1.024 Urine Protein TRACE Urine Glucose (UA) NEG Urine Ketones NEG Urine Occult Blood SMALL Urine Nitrite NEG Urine Bilirubin NEG Urine Urobilinogen LESS THAN 2.0 Urine Leukocyte Esterase NEG Urine RBC 1 Urine WBC 2 Urine Squamous Epithelial Cells <1 Urine Mucus FEW Microscopic Urinalysis Comment CULT NOT INDICATED Date/Time Source Procedure Growth Status 09/04/17 09:25 Blood Peripheral Aerobic Blood Culture Pending Received 09/04/17 09:25 Blood Peripheral Anaerobic Blood Culture Pending Received Result Diagram: 09/04/17 0719 09/04/17 0719 Imaging Last Impressions Abdomen/Pelvis CT 09/04/17 0707 Signed Impressions: Service Date/Time: Monday, September 04, 2017 08:20 - CONCLUSION: 1. There is nonspecific edema in the subcutaneous soft tissues of the left lower anterior abdominal wall with diffuse enlargement of the left rectus muscle. This may be hematoma versus inflammatory process.. No loculated fluid collections are demonstrated in the abdominal wall. 2. Scattered diverticulosis of the descending and sigmoid colon without inflammatory changes. 3. Fatty infiltration of the liver. 4. Stable scarring medial left lower lung. Uli May MD Caprini VTE Risk Assessment Caprini VTE Risk Assessment: No/Low Risk (score <= 1) Caprini Risk Assessment Model Point Value = 1 Point Value = 2 Point Value = 3 Point Value = 5 Age 41-60 Minor surgery BMI > 25 kg/m2 Swollen legs Varicose veins or History of unexplained or recurrent spontaneous Oral contraceptives or hormone replacement Sepsis (< 1 month) Serious lung disease, including pneumonia (< 1 month) Abnormal pulmonary function Acute myocardial infarction Congestive heart failure (< 1 month) History of inflammatory bowel disease Medical patient at bed rest Age 61-74 Arthroscopic surgery Major open surgery (> 45 min) Laparoscopic surgery (> 45 min) Malignancy Confined to bed (> 72 hours) Immobilizing plaster cast Central venous access Age >= 75 History of VTE Family history of VTE Factor V Leiden Prothrombin [id number] Lupus anticoagulant Anticardiolipin antibodies Elevated serum homocysteine Heparin-induced thrombocytopenia Other congenital or acquired thrombophilia Stroke (< 1 month) Elective arthroplasty Hip, pelvis, or leg fracture Acute spinal cord injury (< 1 month) Prophylaxis Regimen Total Risk Factor Score Risk Level Prophylaxis Regimen 0-1 Low Early ambulation 2 Moderate Order ONE of the following: *Sequential Compression Device (SCD) *Heparin 5000 units SQ BID 3-4 Higher Order ONE of the following medications: *Heparin 5000 units SQ TID *Enoxaparin/Lovenox 40 mg SQ daily (WT < 150 kg, CrCl > 30 mL/min) *Enoxaparin/Lovenox 30 mg SQ daily (WT < 150 kg, CrCl > 10-29 mL/min) *Enoxaparin/Lovenox 30 mg SQ BID (WT < 150 kg, CrCl > 30 mL/min) AND/OR *Sequential Compression Device (SCD) 5 or more Highest Order ONE of the following medications: *Heparin 5000 units SQ TID (Preferred with Epidurals) *Enoxaparin/Lovenox 40 mg SQ daily (WT < 150 kg, CrCl > 30 mL/min) *Enoxaparin/Lovenox 30 mg SQ daily (WT < 150 kg, CrCl > 10-29 mL/min) *Enoxaparin/Lovenox 30 mg SQ BID (WT < 150 kg, CrCl > 30 mL/min) AND *Sequential Compression Device (SCD) Assessment and Plan Problem List: (1) Abdominal wall cellulitis ICD Codes: L03.311 - Cellulitis of abdominal wall Status: Acute Plan: Pt is a 42 y/o WM with HTN, hx of MRSA infection involving his right first digit, and who recent had appendectomy on 08/05/[address] Ancelmo Rodríguez for acute appendicitis. Pt reports that he recovered well from this surgery and returned to work on light duty. Three days ago he was able to return to full active duty at work and states that he was feeling well. The day he started back to full active duty he was lifting some heavy tables. Abdominal pain Possible Abd wall cellulitis vs. hematoma - Two days ago pt developed some left lower quadrant abdominal pain and nausea. Yesterday he developed fevers upwards of 101 degrees. - The pts pain and nausea worsened last night and this prompted his evaluation in the ED. - His labs in the ED noted elevated WBC count of 11.2 and he was noted to be febrile upon arrival. - CT Abdomen/pelvis in the ED revealed nonspecific edema in the subcutaneous soft tissues of the left lower anterior abdominal wall with diffuse enlargement of the left rectus muscle. This may be hematoma versus inflammatory process. No loculated fluid collections are demonstrated in the abdominal wall. - Pt is being admitted for possible cellulitis vs. hematoma - Pt was given IV Vancomycin and Rocephin in the ED. - Cont. Vancomycin with pharmacy to consult - Consult Dr. Rodríguez to evaluate - Tylenol PRN fever - Pain control PRN - IVF x 1 more bag - Diet as tolerated - Zofran PRN - Supportive care HTN - Cont. home meds - Clonidine PRN DVT prophylaxis with SCDs (2) HTN (hypertension) ICD Codes: I10 - Essential (primary) hypertension Status: Chronic (3) History of laparoscopic appendectomy ICD Codes: Z98.890 - Other specified postprocedural states; Z90.49 - Acquired absence of other specified parts of digestive tract Status: Resolved Assessment and Plan Patient examined. Assessment and plan formulated with Kitty Lam PA-C. I agree with the above. concern for infected abdomen wall hematoma vs cellulitis at old surgical incision. Physician Certification 2 Midnight Certification Type: Admission for Inpatient Services Order for Inpatient Services The services are ordered in accordance with Medicare regulations or non- Medicare payer requirements, as applicable. In the case of services not specified as inpatient-only, they are appropriately provided as inpatient services in accordance with the 2-midnight benchmark. Estimated LOS (days): 3 3 days is the estimated time the patient will need to remain in the hospital, assuming treatment plan goals are met and no additional complications. Post-Hospital Plan: Kitty Faulkner Sep 04, 2017 10:43 Benson Ness MD Sep 06, 2017 13:31
[2017-09-04] MEDS ORDERED: ACETAMINOPHEN 325 MG TAB PO PRN (10:45)
[2017-09-04] MEDS ORDERED: ONDANSETRON HCL 4 MG/2 ML VIAL IV PRN (10:45)
[2017-09-04] MEDS: MORPHINE SULFATE 2 MG/ML INJ IV PUSH PRN ×3 (11:35→22:17)
--- NOTE | 2017-09-04 16:49 | PD.CONS ---
cc: Ancelmo Rodríguez MD HPI Service General Surgery Consult Requested By Kitty HURTADO Reason for Consult s/p laparoscopic appendectomy with abdominal pain; redness of site in incision Primary Care Physician Lukasz Tate MD History of Present Illness This is a 42 year old male with a past medical history of hypertension, cellulitis and arthritis. He had a laparoscopic appendectomy on Aug 05 with findings of a distended, non-perforated appendix. The patient recovered from the procedure and was discharged home in stable condition. The patient returned to light duty work after his follow up appointment. He was progressed to full duty several days ago. He was lifting some heavy chairs at work and two days later noticed some LEFT lower quadrant abdominal pain. The patient states he had fevers at home as high as 102. He has been taking Tylenol and Ibuprofen. Last evening he began feeling worse and placed a call to Dr. Rodríguez who said he could see him in the office today but if he felt worse to go to the Emergency Department. He came to the ED this morning. A CT abdomen/pelvis was obtained which shows there is nonspecific edema in the subcutaneous sot tissue in the LEFT lower quadrant; hematoma vs inflammatory process; there is no loculated fluid collections visualized in the abdominal wall. A General Surgery consultation has been requested. Review of Systems Constitutional: COMPLAINS OF: Fever, Chills, DENIES: Change in appetite Endocrine: DENIES: Polydipsia, Polyuria, Polyphagia Respiratory: DENIES: Apneas Cardiovascular: DENIES: Chest pain, Dyspnea on Exertion Gastrointestinal: COMPLAINS OF: Abdominal pain, Nausea, DENIES: Vomiting Genitourinary: DENIES: Urinary frequency Musculoskeletal: DENIES: Joint pain Integumentary: DENIES: Abnormal pigmentation Hematologic/lymphatic: DENIES: Bruising Immunologic/allergic: DENIES: Eczema Neurologic: DENIES: Abnormal gait, Headache Psychiatric: DENIES: Confusion, Mood changes, Depression Past Family Social History Past Medical History Cellulitis Arthritis Hypertension Past Surgical History Laparoscopic appendectomy (August 05, 2017) RIGHT knee surgery RIGHT hand surgery Reported Medications Losartan Allergies: Coded Allergies: diclofenac (Unverified Allergy, Severe, N/V, 09/04/17) Active Ordered Medications Current Medications Medications (Trade) Dose Ordered Sig/Constantino Route Start Time Stop Time Status Last Admin (NS Flush) 2 ml UNSCH PRN IV FLUSH 09/04/17 07:15 Pharmacy Profile Note 0 ml @ 0 mls/hr UNSCH OTHER 09/04/17 10:30 (Morphine Inj) 4 mg Q4H PRN IV PUSH 09/04/17 10:30 09/04/17 11:35 (Percocet 5-325 Mg) 1 tab Q4H PRN PO 09/04/17 10:30 (Cozaar) 50 mg DAILY PO 09/04/17 10:30 Sodium Chloride 1,000 ml @ 100 mls/hr Q10H IV 09/04/17 10:45 09/04/17 20:44 09/04/17 10:45 (Tylenol) 650 mg Q4H PRN PO 09/04/17 10:45 (Zofran Inj) 4 mg Q6H PRN IV 09/04/17 10:45 Vancomycin HCl 1750 mg/Sodium Chloride 517.5 ml @ 257.5 mls/ hr Q12H IV 09/04/17 22:00 Miscellaneous Information SPECIFIC LAB TO BE [facility]... ONCE ONCE .XX 09/05/17 21:45 09/05/17 21:46 Family History Noncontributory Social History Denies tobacco use Denies ETOH use Denies illicit drug use Physical Exam Vital Signs Vital Signs Date Time Temp Pulse Resp B/P (MAP) Pulse Ox O2 Delivery O2 Flow Rate FiO2 09/04/17 15:32 100.4 96 20 129/80 (96) 98 09/04/17 11:41 16 09/04/17 11:19 98.8 86 20 127/79 (95) 95 09/04/17 10:41 80 18 123/71 (88) 97 09/04/17 10:35 80 18 123/71 (88) 97 Room Air 09/04/17 07:45 94 18 165/89 (114) 97 Room Air 09/04/17 07:41 18 97 Room Air 09/04/17 06:43 100.4 100 18 209/109 (142) 96 Room Air Physical Exam GENERAL: Pleasant 42 year old male resting in bed in no acute distress. SKIN: Warm and dry. See details of abdominal findings below. HEAD: Atraumatic. Normocephalic. EYES: Pupils equal and round. No scleral icterus. No injection or drainage. ENT: No nasal bleeding or discharge. Mucous membranes pink and moist. NECK: Trachea midline. CARDIOVASCULAR: Regular rate and rhythm. RESPIRATORY: No accessory muscle use. Clear to auscultation. Breath sounds equal bilaterally. GASTROINTESTINAL: Abdomen obese; soft; LEFT lower quadrant incision site with mild erythema; no palpable fluid collection; skin in warm to the touch in the LEFT lower quadrant. MUSCULOSKELETAL: Extremities without clubbing, cyanosis, or edema. No obvious deformities. NEUROLOGICAL: Awake and alert. No obvious cranial nerve deficits. Motor grossly within normal limits. Five out of 5 muscle strength in the arms and legs. Normal speech. PSYCHIATRIC: Appropriate mood and affect; insight and judgment normal. Laboratory Laboratory Tests Test 09/04/17 07:19 09/04/17 07:53 White Blood Count 11.5 Red Blood Count 4.75 Hemoglobin 13.7 Hematocrit 39.4 Mean Corpuscular Volume 82.9 Mean Corpuscular Hemoglobin 28.8 Mean Corpuscular Hemoglobin Concent 34.7 Red Cell Distribution Width 13.3 Platelet Count 149 Mean Platelet Volume 8.6 Neutrophils (%) (Auto) 71.0 Lymphocytes (%) (Auto) 15.8 Monocytes (%) (Auto) 12.1 Eosinophils (%) (Auto) 0.6 Basophils (%) (Auto) 0.5 Neutrophils # (Auto) 8.2 Lymphocytes # (Auto) 1.8 Monocytes # (Auto) 1.4 Eosinophils # (Auto) 0.1 Basophils # (Auto) 0.1 CBC Comment DIFF FINAL Differential Comment Prothrombin Time 10.9 Prothromb Time International Ratio 1.1 Activated Partial Thromboplast Time 29.8 Blood Urea Nitrogen 13 Creatinine 1.04 Random Glucose 109 Total Protein 7.9 Albumin 3.8 Calcium Level 9.1 Alkaline Phosphatase 62 Aspartate Amino Transf (AST/SGOT) 12 Alanine Aminotransferase (ALT/SGPT) 20 Total Bilirubin 0.8 Sodium Level 137 Potassium Level 4.2 Chloride Level 104 Carbon Dioxide Level 26.3 Anion Gap 7 Estimat Glomerular Filtration Rate 78 Lactic Acid Level 0.6 Urine Color YELLOW Urine Turbidity CLEAR Urine pH 5.5 Urine Specific [place] 1.024 Urine Protein TRACE Urine Glucose (UA) NEG Urine Ketones NEG Urine Occult Blood SMALL Urine Nitrite NEG Urine Bilirubin NEG Urine Urobilinogen LESS THAN 2.0 Urine Leukocyte Esterase NEG Urine RBC 1 Urine WBC 2 Urine Squamous Epithelial Cells <1 Urine Mucus FEW Microscopic Urinalysis Comment CULT NOT INDICATED Date/Time Source Procedure Growth Status 09/04/17 09:25 Blood Peripheral Aerobic Blood Culture Pending Received 09/04/17 09:25 Blood Peripheral Anaerobic Blood Culture Pending Received Result Diagram: 09/04/17 0719 09/04/1719 Imaging Last 48 hours Impressions Abdomen/Pelvis CT 09/04/1707 Signed Impressions: Service Date/Time: Monday, September 04, 2017 08:20 - CONCLUSION: 1. There is nonspecific edema in the subcutaneous soft tissues of the left lower anterior abdominal wall with diffuse enlargement of the left rectus muscle. This may be hematoma versus inflammatory process.. No loculated fluid collections are demonstrated in the abdominal wall. 2. Scattered diverticulosis of the descending and sigmoid colon without inflammatory changes. 3. Fatty infiltration of the liver. 4. Stable scarring medial left lower lung. Uli May MD Assessment and Plan Assessment and Plan 42 year old male s/p laparoscopic appendectomy on Aug 05, 2017; now back with LLQ abdominal pain; chills; fevers -Likely cellulitis -Recommend IV antibiotics -If no improvement would do an ultrasound of that area to evaluate for abscess -Thank you for this consult; We will continue to follow Discussed Condition With Melissa Abdi Sep 04, 2017 16:49
[2017-09-04] MEDS: VANCOMYCIN INJ 1,750 MG in SODIUM CHLORID 0.9% 500 ML INJ 500 ML IV SCH (22:16)
[2017-09-05 00:21] VITALS: BP 136/76; PULSE 97; RESP 19; TEMP 99.9; O2SAT 96
[2017-09-05] MEDS: MORPHINE SULFATE 2 MG/ML INJ IV PUSH PRN ×6 (02:16→21:09)
[2017-09-05 04:44] VITALS: BP 125/71; PULSE 93; RESP 19; TEMP 100.1; O2SAT 94
[2017-09-05 08:00] VITALS: BP 126/79; PULSE 90; RESP 19; TEMP 97.3; O2SAT 95
[2017-09-05 08:23] LABS: AUTOMATED NEUTROPHIL # 8.9 TH/MM3 (1.8-7.7); BASOPHIL % 0.3 % (0.0-2.0); EOSINOPHIL # 0.1 TH/MM3 (0-0.4); EOSINOPHIL % 0.5 % (0.0-4.0); HEMATOCRIT 35.5 % (39.0-51.0); HEMO FLAGS DIFF FINAL; LYMPH % 14.1 % (9.0-44.0); LYMPHOCYTE # 1.7 TH/MM3 (1.0-4.8); MEAN CELL VOLUME 84.2 FL (80.0-100.0); MEAN CORPUSCULAR HEMOGLOBIN 28.7 PG (27.0-34.0); MEAN CORPUSCULAR HGB CONC 34.1 % (32.0-36.0); MONO % 12.5 % (0.0-8.0); NEUT % 72.6 % (16.0-70.0); PLATELET COUNT 127 TH/MM3 (150-450); RED BLOOD COUNT 4.22 MIL/MM3 (4.50-5.90); RED CELL DISTRIBUTION WIDTH 13.5 % (11.6-17.2); WHITE BLOOD COUNT 12.2 TH/MM3 (4.0-11.0)
[2017-09-05] MEDS: LOSARTAN 50 MG TAB PO SCH (08:39)
[2017-09-05 08:47] LABS: BICARBONATE 24.4 MEQ/L (21.0-32.0); MAGNESIUM 2.1 MG/DL (1.5-2.5); POTASSIUM 3.9 MEQ/L (3.5-5.1)
--- NOTE | 2017-09-05 09:15 | HHI.PR ---
Subjective Remarks more pressure over the lower abdomen wall near cellulitis site. no diarrhea or vomiting Objective Vitals heart reg luing cta abd erythema over mid lower abdomen extending to left lower abdomen no rebound. no drainage. Vital Signs Date Time Temp Pulse Resp B/P (MAP) Pulse Ox O2 Delivery O2 Flow Rate FiO2 09/05/17 08:00 97.3 90 19 126/79 (95) 95 09/05/17 04:44 100.1 93 19 125/71 (89) 94 09/05/17 02:35 18 09/05/17 00:21 99.9 97 19 136/76 (96) 96 09/04/17 20:00 98.3 98 20 136/68 (90) 95 09/04/17 17:24 18 09/04/17 15:32 100.4 96 20 129/80 (96) 98 09/04/17 11:19 98.8 86 20 127/79 (95) 95 09/04/17 10:41 80 18 123/71 (88) 97 09/04/17 10:35 80 18 123/71 (88) 97 Room Air Result Diagram: 09/05/17 0720 09/05/17 0720 Imaging Last Impressions Abdomen/Pelvis CT 09/04/17 0707 Signed Impressions: Service Date/Time: Monday, September 04, 2017 08:20 - CONCLUSION: 1. There is nonspecific edema in the subcutaneous soft tissues of the left lower anterior abdominal wall with diffuse enlargement of the left rectus muscle. This may be hematoma versus inflammatory process.. No loculated fluid collections are demonstrated in the abdominal wall. 2. Scattered diverticulosis of the descending and sigmoid colon without inflammatory changes. 3. Fatty infiltration of the liver. 4. Stable scarring medial left lower lung. Uli May MD A/P Problem List: (1) Abdominal wall cellulitis ICD Codes: L03.311 - Cellulitis of abdominal wall Status: Acute Plan: Pt is a 42 y/o WM with HTN, hx of MRSA infection involving his right first digit, and who recent had appendectomy on 08/05/[address] Ancelmo Rodríguez for acute appendicitis. Pt reports that he recovered well from this surgery and returned to work on light duty. Three days ago he was able to return to full active duty at work and states that he was feeling well. The day he started back to full active duty he was lifting some heavy tables. Abdominal pain Possible Abd wall cellulitis vs. hematoma - Two days ago pt developed some left lower quadrant abdominal pain and nausea. Yesterday he developed fevers upwards of 101 degrees. - The pts pain and nausea worsened last night and this prompted his evaluation in the ED. - His labs in the ED noted elevated WBC count of 11.2 and he was noted to be febrile upon arrival. - CT Abdomen/pelvis in the ED revealed nonspecific edema in the subcutaneous soft tissues of the left lower anterior abdominal wall with diffuse enlargement of the left rectus muscle. This may be hematoma versus inflammatory process. No loculated fluid collections are demonstrated in the abdominal wall. - Pt is being admitted for possible cellulitis vs. hematoma/abscess - Pt was given IV Vancomycin and Rocephin in the ED. - Cont. Vancomycin with pharmacy to consult - Consult Dr. Rodríguez to evaluate today pt with more pressure at the cellulitis site. will get the u/s to eval for underlying abscess. cont vanco and broaden if persistent fever. increase po/iv prn pain control. HTN - Cont. home meds - Clonidine PRN DVT prophylaxis with SCDs (2) HTN (hypertension) ICD Codes: I10 - Essential (primary) hypertension Status: Chronic (3) History of laparoscopic appendectomy ICD Codes: Z98.890 - Other specified postprocedural states; Z90.49 - Acquired absence of other specified parts of digestive tract Status: Resolved Benson Ness MD Sep 05, 2017 09:15
[2017-09-05] MEDS ORDERED: VANCOMYCIN INJ 1,000 MG in SODIUM CHLOR 0.9% 250 ML INJ 250 ML IV SCH (10:00)
[2017-09-05] MEDS: VANCOMYCIN INJ 1,750 MG in SODIUM CHLORID 0.9% 500 ML INJ 500 ML IV SCH (11:18)
--- NOTE | 2017-09-05 11:47 | RADRPT ---
EXAM DATE/TIME: 09/05/2017 09:29 [facility] COMPARISON: CT ABDOMEN & PELVIS W CONTRAST, September 04, 2017, 8:20. INDICATIONS : Abscess. MEDICAL HISTORY : Glasses. Chest pain. Arthritis. Herniated disk. MRSA. SURGICAL HISTORY : Appendectomy. Right hand surgery. ENCOUNTER: Initial ACUITY: 1 month PAIN SCORE: 5/10 LOCATION: Left Abdominal wall. AREA EVALUATED: Left abdominal wall/rectus muscle area. FINDINGS: Multiple sonographic images demonstrate a complex subcutaneous collection within the left anterior ab dominal wall measuring 7.9 x 4.6 x 4.9 cm which is nonspecific. Hematoma, seroma and abscess remain i n the differential. CONCLUSION: Complex subcutaneous collection within the left anterior abdominal wall measuring 7.9 x 4.6 x 4.9 cm which is nonspecific. Hematoma, seroma and abscess remain in the differential. Bravo Carey MD on September 05, 2017 at 11:42 Board Certified Radiologist. This report was verified electronically.
[2017-09-05 12:00] VITALS: BP 123/80; PULSE 85; RESP 18; TEMP 98.8; O2SAT 96
--- NOTE | 2017-09-05 13:41 | HHI.PR ---
Subjective Subjective Notes feels the same, no new c/o Objective Vitals/I&O Vital Signs Date Time Temp Pulse Resp B/P (MAP) Pulse Ox O2 Delivery O2 Flow Rate FiO2 09/05/17 12:00 98.8 85 18 123/80 (94) 96 09/04/17 10:35 Room Air Labs Laboratory Tests Test 09/05/17 07:20 White Blood Count 12.2 Red Blood Count 4.22 Hemoglobin 12.1 Hematocrit 35.5 Mean Corpuscular Volume 84.2 Mean Corpuscular Hemoglobin 28.7 Mean Corpuscular Hemoglobin Concent 34.1 Red Cell Distribution Width 13.5 Platelet Count 127 Mean Platelet Volume 8.9 Neutrophils (%) (Auto) 72.6 Lymphocytes (%) (Auto) 14.1 Monocytes (%) (Auto) 12.5 Eosinophils (%) (Auto) 0.5 Basophils (%) (Auto) 0.3 Neutrophils # (Auto) 8.9 Lymphocytes # (Auto) 1.7 Monocytes # (Auto) 1.5 Eosinophils # (Auto) 0.1 Basophils # (Auto) 0.0 CBC Comment DIFF FINAL Differential Comment Blood Urea Nitrogen 10 Creatinine 0.74 Random Glucose 103 Calcium Level 8.2 Magnesium Level 2.1 Sodium Level 136 Potassium Level 3.9 Chloride Level 106 Carbon Dioxide Level 24.4 Anion Gap 6 Estimat Glomerular Filtration Rate 116 Date/Time Source Procedure Growth Status 09/04/17 09:25 Blood Peripheral Aerobic Blood Culture - Preliminary NO GROWTH IN 1 DAY Resulted 09/04/17 09:25 Blood Peripheral Anaerobic Blood Culture - Preliminary NO GROWTH IN 1 DAY Resulted Radiology Last 48 hours Impressions Abdomen/Pelvis CT 09/04/17 0707 Signed Impressions: Service Date/Time: Monday, September 04, 2017 08:20 - CONCLUSION: 1. There is nonspecific edema in the subcutaneous soft tissues of the left lower anterior abdominal wall with diffuse enlargement of the left rectus muscle. This may be hematoma versus inflammatory process.. No loculated fluid collections are demonstrated in the abdominal wall. 2. Scattered diverticulosis of the descending and sigmoid colon without inflammatory changes. 3. Fatty infiltration of the liver. 4. Stable scarring medial left lower lung. Uli May MD Abdomen: Non-distended, Non-tender A/P Assessment and Plan 42yo male with infection after appy, stable. possible cellulitis and early abscess formation will make NPO after midnight for either IR to drain or operative ID continue Toribioo, Tien Rico MD Sep 05, 2017 13:41
[2017-09-05 16:00] VITALS: BP 137/76; PULSE 110; RESP 18; TEMP 98.7; O2SAT 95
[2017-09-05] MEDS: PIPERACIL-TAZO 3.375 GM PREMIX 50 ML IV SCH ×2 (16:44→22:00)
[2017-09-05 20:00] VITALS: BP 128/82; PULSE 95; RESP 20; TEMP 99.1; O2SAT 95
[2017-09-05] MEDS ORDERED: PHARMACY ORDERED LAB ONE (21:45)
[2017-09-06] VITALS: BP 113/76; PULSE 84; RESP 20; TEMP 98; O2SAT 95
[2017-09-06] MEDS: VANCOMYCIN INJ 1,750 MG in SODIUM CHLORID 0.9% 500 ML INJ 500 ML IV SCH (00:05)
[2017-09-06] MEDS: MORPHINE SULFATE 2 MG/ML INJ IV PUSH PRN ×4 (02:05→16:46)
[2017-09-06] MEDS: PIPERACIL-TAZO 3.375 GM PREMIX 50 ML IV SCH ×4 (03:16→21:18)
[2017-09-06 04:00] VITALS: BP 120/80; PULSE 85; RESP 20; TEMP 97.8; O2SAT 95
[2017-09-06 08:00] VITALS: BP 134/86; PULSE 84; RESP 18; TEMP 98.6; O2SAT 96
[2017-09-06] MEDS: LOSARTAN 50 MG TAB PO SCH (08:03)
[2017-09-06] MEDS: VANCOMYCIN INJ 1,500 MG in SODIUM CHLORID 0.9% 500 ML INJ 500 ML IV SCH ×2 (08:26→18:18)
--- NOTE | 2017-09-06 10:02 | HHI.PR ---
Subjective Remarks same pressure over lower abdomen Objective Vitals heart reg lung cta abd lower left abdomen erythema/tenderness. ext no edema Vital Signs Date Time Temp Pulse Resp B/P (MAP) Pulse Ox O2 Delivery O2 Flow Rate FiO2 09/06/17 08:00 98.6 84 18 134/86 (102) 96 09/06/17 04:00 97.8 85 20 120/80 (93) 95 09/06/17 00:00 98.0 84 20 113/76 (88) 95 09/05/17 20:00 99.1 95 20 128/82 (97) 95 09/05/17 12:00 98.8 85 18 123/80 (94) 96 09/05/17 11:23 19 Result Diagram: 09/05/17 0720 09/05/17 0720 Imaging Last Impressions Abdomen/Pelvis CT 09/04/17 0707 Signed Impressions: Service Date/Time: Monday, September 04, 2017 08:20 - CONCLUSION: 1. There is nonspecific edema in the subcutaneous soft tissues of the left lower anterior abdominal wall with diffuse enlargement of the left rectus muscle. This may be hematoma versus inflammatory process.. No loculated fluid collections are demonstrated in the abdominal wall. 2. Scattered diverticulosis of the descending and sigmoid colon without inflammatory changes. 3. Fatty infiltration of the liver. 4. Stable scarring medial left lower lung. Uli May MD A/P Problem List: (1) Abdominal wall cellulitis ICD Codes: L03.311 - Cellulitis of abdominal wall Status: Acute Plan: Pt is a 42 y/o WM with HTN, hx of MRSA infection involving his right first digit, and who recent had appendectomy on 08/05/[address] Ancelmo Rodríguez for acute appendicitis. Pt reports that he recovered well from this surgery and returned to work on light duty. Three days ago he was able to return to full active duty at work and states that he was feeling well. The day he started back to full active duty he was lifting some heavy tables. Abdominal pain Abd wall cellulitis vs. hematoma/abscess - Two days ago pt developed some left lower quadrant abdominal pain and nausea. Yesterday he developed fevers upwards of 101 degrees. - His labs in the ED noted elevated WBC count of 11.2 and he was noted to be febrile upon arrival. - CT Abdomen/pelvis in the ED revealed nonspecific edema in the subcutaneous soft tissues of the left lower anterior abdominal wall with diffuse enlargement of the left rectus muscle. This may be hematoma versus inflammatory process. No loculated fluid collections are demonstrated in the abdominal wall. - soft tissue u/s 09/05: Complex subcutaneous collection within the left anterior abdominal wall measuring 7.9 x 4.6 x 4.9 cm which is nonspecific. Hematoma, seroma and abscess remain in the differential. pt currently on vanco/zosyn. gen surg following and pt npo for IR drainage vs surgical drainage in OR. pain control morphine and norco prn. dvt prophylaxis (2) HTN (hypertension) ICD Codes: I10 - Essential (primary) hypertension Status: Chronic (3) History of laparoscopic appendectomy ICD Codes: Z98.890 - Other specified postprocedural states; Z90.49 - Acquired absence of other specified parts of digestive tract Status: Resolved Benson Ness MD Sep 06, 2017 10:02
--- NOTE | 2017-09-06 11:06 | HHI.PR ---
Subjective Subjective Notes feels the same, painful LLQ incision Objective Vitals/I&O Vital Signs Date Time Temp Pulse Resp B/P (MAP) Pulse Ox O2 Delivery O2 Flow Rate FiO2 09/06/17 08:00 98.6 84 18 134/86 (102) 96 09/04/17 10:35 Room Air Labs Laboratory Tests Test 09/05/17 22:20 Vancomycin Level Trough 7.2 Date/Time Source Procedure Growth Status 09/04/17 09:25 Blood Peripheral Aerobic Blood Culture - Preliminary NO GROWTH IN 1 DAY Resulted 09/04/17 09:25 Blood Peripheral Anaerobic Blood Culture - Preliminary NO GROWTH IN 1 DAY Resulted Radiology Last 48 hours Impressions Abdomen/Pelvis CT 09/04/17 0707 Signed Impressions: Service Date/Time: Monday, September 04, 2017 08:20 - CONCLUSION: 1. There is nonspecific edema in the subcutaneous soft tissues of the left lower anterior abdominal wall with diffuse enlargement of the left rectus muscle. This may be hematoma versus inflammatory process.. No loculated fluid collections are demonstrated in the abdominal wall. 2. Scattered diverticulosis of the descending and sigmoid colon without inflammatory changes. 3. Fatty infiltration of the liver. 4. Stable scarring medial left lower lung. Uli May MD Abdomen: Non-distended, Post-op tenderness Narrative Exam no erythema at all, tender over trocar site Wound Wound : Wound Location: Abdomen Appearance: Clean & Dry A/P Assessment and Plan probable rectus hematoma s/p lap appy i see no sign of abcess recommend DC home and FU Dr. Hernandez this week in office pain meds and abx should resolve this if hematoma does get infected will need formal incision and drainage resume diet and dc with po abx FU dr hernandez this week. Flex Titus MD Sep 06, 2017 11:06
[2017-09-06 12:00] VITALS: BP 131/83; PULSE 85; RESP 17; TEMP 97.4; O2SAT 97
[2017-09-06 16:00] VITALS: BP 121/74; PULSE 99; RESP 19; TEMP 98.5; O2SAT 98
[2017-09-06 20:00] VITALS: BP 138/88; PULSE 100; RESP 18; TEMP 98.7; O2SAT 100
[2017-09-06] MEDS: ACETAMINOPHEN/HYDROcodone 325 MG/10 MG TAB PO PRN (22:00)
[2017-09-07] VITALS: BP 155/81; PULSE 82; RESP 20; TEMP 97.8; O2SAT 95
[2017-09-07] MEDS: VANCOMYCIN INJ 1,500 MG in SODIUM CHLORID 0.9% 500 ML INJ 500 ML IV SCH ×2 (01:22→09:00)
[2017-09-07 04:00] VITALS: BP 137/85; PULSE 84; RESP 20; TEMP 97.6; O2SAT 95
[2017-09-07] MEDS: PIPERACILLIN/TAZ 3.375 GM VIAL 3.375 GM in SODIUM CHLORIDE 0.9% INJ 100 ML IV SCH ×2 (04:56→12:14)
[2017-09-07 08:00] VITALS: BP 134/90; PULSE 77; RESP 18; TEMP 97.5; O2SAT 96
[2017-09-07] MEDS ORDERED: PHARMACY ORDERED LAB ONE (08:45)
[2017-09-07] MEDS: ACETAMINOPHEN/HYDROcodone 325 MG/10 MG TAB PO PRN (09:40)
[2017-09-07] MEDS: LOSARTAN 50 MG TAB PO SCH (09:40)
[2017-09-07 12:00] VITALS: BP 142/89; PULSE 80; RESP 18; TEMP 97.7; O2SAT 97
[2017-09-07 14:37] VITALS: RESP 19
[2017-09-07] MEDS ORDERED: AUGM875T3 PO (15:34)
[2017-09-07] MEDS ORDERED: HYDR-3583 PO (15:34)
--- NOTE | 2017-09-07 16:39 | PD.RAD ---
Post US Procedure Prog Note Pre Procedure Diagnosis: (1) Abdominal wall cellulitis Post Procedure Diagnosis: (1) Abdominal wall cellulitis Procedure Date: Sep 07, 2017 Supervising Radiologist: Theodore Melgoza JR Anesthesia: Local Plan of Activity Patient to Unit: Nursing Unit Patient Condition: Good Additional Comments: US guided aspiration of an anterior abdominal wall collection performed. Area accessed in two different locations. Unable to get any fluid. This suggests plegmon as opposed to abcess. No sample able to be collected. See PACS Report for procedural detail/treatment Jr. Abad,Theodore Ho MD Sep 07, 2017 16:39
[2017-09-07] MEDS ORDERED: LIDOCAINE HCL 1% 20 ML VIAL ONE (16:47)
--- NOTE | 2017-09-07 17:15 | HHI.PR ---
cc: Ancelmo Rodríguez MD Subjective Subjective Notes Resting in bed Asking about going home Objective Vitals/I&O Vital Signs Date Time Temp Pulse Resp B/P (MAP) Pulse Ox O2 Delivery O2 Flow Rate FiO2 09/07/17 14:37 19 09/07/17 12:00 97.7 80 142/89 (106) 97 09/04/17 10:35 Room Air Labs Laboratory Tests Test 09/07/17 09:16 Vancomycin Level Trough 16.8 Date/Time Source Procedure Growth Status 09/04/17 09:25 Blood Peripheral Aerobic Blood Culture - Preliminary NO GROWTH IN 3 DAYS Resulted 09/04/17 09:25 Blood Peripheral Anaerobic Blood Culture - Preliminary NO GROWTH IN 3 DAYS Resulted Radiology Last 48 hours Impressions Abdomen/Pelvis CT 09/04/17 0707 Signed Impressions: Service Date/Time: Monday, September 04, 2017 08:20 - CONCLUSION: 1. There is nonspecific edema in the subcutaneous soft tissues of the left lower anterior abdominal wall with diffuse enlargement of the left rectus muscle. This may be hematoma versus inflammatory process.. No loculated fluid collections are demonstrated in the abdominal wall. 2. Scattered diverticulosis of the descending and sigmoid colon without inflammatory changes. 3. Fatty infiltration of the liver. 4. Stable scarring medial left lower lung. Uli May MD Cardiovascular: Regular Lungs: Clear Abdomen: Other (LLQ--- tender to palpation; erythema now resolved) Extremities: No edema A/P Assessment and Plan 42 year old male s/p lap appy about a month ago; back with abdominal pain; fevers -Continue PO antibiotics -IR to eval again today for possible drainage -If nothing to drain okay to DC and follow up with Melissa Manzano Sep 07, 2017 17:15
[2017-09-08] MEDS ORDERED: PHARMACY ORDERED LAB ONE (08:45)
--- NOTE | 2017-09-08 09:44 | RADRPT ---
EXAM DATE/TIME: 09/07/2017 15:59 [facility] COMPARISON: No previous studies available for comparison. INDICATIONS : Left lower abdominal abscess. MEDICAL HISTORY : Arthritis. Cardiac disorders. Chest pain. Abdominal pain. Herinated disc. MRSA. SURGICAL HISTORY : Right knee arthroscopy x2. I&D right hand for MRSA. ENCOUNTER: Initial ACUITY: 2 weeks PAIN SCORE: 5/10 LOCATION: Left abdomen. FLUID: Post procedure scanning reveals no hematoma or other complication. TECHNIQUE: 1. Ultrasound guidance for needle aspiration. 2. Aspiration. The risks, benefits and alternatives to the procedure were explained and verbal and written consent w as obtained. The site was prepped in sterile fashion. Full sterile technique was used, including ca p, mask, sterile gloves and gown and a large sterile sheet. Hand hygiene and 2% chlorhexidine and/or betadine/alcohol prep was utilized per protocol for cutaneous antisepsis. The skin and subcutaneous tissues were infiltrated with local anesthetic solution. Sterile gel and sterile probe cover were u tilized for ultrasound guidance. With the patient on the ultrasound table, ultrasound imaging was used to select the most appropriate approach for aspiration. There is a complex collection deep within the anterior abdominal wall within the infraumbilical region. This is just deep to a scar from recent trocar placement. A dermatotomy w as made with an 11 blade scalpel. Under direct sonographic guidance an 18 gauge needle was passed in to this complex collection. Aspiration yielded no fluid. The needle was directed into a second area o f the collection without fluid as well. CONCLUSION: Uncomplicated ultrasound guided aspiration. 2 areas of this complex collection were aspirated without fluid retrieved. This would suggest a phlegmon as opposed to a liquefied abscess. Theodore Melgoza Jr., MD on September 08, 2017 at 9:39 Board Certified Radiologist. This report was verified electronically.
== END 2017-09-07 17:06 | disposition home or self-care (01) | DRG 863 ==
LOC: NEPE 06:42 → NEDA 09:27 → N05A 10:53
PROVIDERS: ADMIT Hospitalist; ATTEND Hospitalist
PROC: 0WJF3ZZ Inspection of Abdominal Wall, Percutaneous Approach (ICD-10-PCS; principal; 2017-09-07)
DX: T81.4XXA Infection following a procedure, initial encounter (principal); L03.311 Cellulitis of abdominal wall; I10 Essential (primary) hypertension; E78.5 Hyperlipidemia, unspecified; M19.90 Unspecified osteoarthritis, unspecified site; Y83.8 Other surgical procedures as the cause of abnormal reaction of the patient, or of later complication, without mention of misadventure at the time of the procedure; K57.30 Diverticulosis of large intestine without perforation or abscess without bleeding; E66.9 Obesity, unspecified; G89.29 Other chronic pain; M54.9 Dorsalgia, unspecified; R00.0 Tachycardia, unspecified; Z86.14 Personal history of Methicillin resistant Staphylococcus aureus infection; Z90.49 Acquired absence of other specified parts of digestive tract
CPT/HCPCS: 10160; 74177; 76942; 76999; 80048; 80053; 80202; 81001; 83605; 83735; 85025; 85610; 85730; 87040; 96361; 96374; 96375; J0696; J2270; J2405; J2543; J3370; J7030; J7040; Q9967